=== PATIENT | male | born 1960 | race Caucasian/White ===

== ENCOUNTER 2016-08-13 13:12 | Emergency (ER) | payer OTHER ==
[~2016-08-13] VITALS: Ht 177.8 cm; Wt 172.7 kg
[~2016-08-13 13:12] MED LIST: AMITRIPTYLINE H10 MG PO; ASPIR 8181 M1 PO; DICLOFENAC SODI75 MG PO; GABAPENTIN300 MG PO; HUMALOG MI100 UNIT/1 SC; MOBIC15 MG PO; MOTRIN IB200 MG PO; PRILOSEC40 MG PO; SIMVASTATIN40 MG PO; SIMVASTATIN5 MG PO; TRAMADOL HCL50 MG PO; TRIAZOLAM0.25 MG PO; ZOCOR40 MG PO; ZOCOR5 MG PO; ZOLOFT100 MG PO; ZOLOFT25 MG PO; ZYRTEC10 M2 PO; ZYRTEC5 MG PO
[2016-08-13] MEDS ORDERED: ULTRAM50 MG PO (15:21)
[2016-08-13] MEDS ORDERED: FLEXERIL10 MG PO (15:21)
[2016-08-13] MEDS ORDERED: UNABLE TO OBTAIN (15:41)
[2016-08-13 15:47] VITALS: BP 130/78
== END 2016-08-13 15:49 | disposition home or self-care (01) ==
LOC: EME 13:12
DX: S40.011A Contusion of right shoulder, initial encounter (principal); S10.93XA Contusion of unspecified part of neck, initial encounter; R07.81 Pleurodynia; W17.89XA Other fall from one level to another, initial encounter; E11.9 Type 2 diabetes mellitus without complications; E78.5 Hyperlipidemia, unspecified
CPT/HCPCS: 71020; 71100; 73030; 99281; 99284

== ENCOUNTER 2016-08-15 00:12 | Emergency (ER) | payer OTHER ==
[~2016-08-15] VITALS: Ht 177.8 cm; Wt 159.0 kg
[~2016-08-15 00:12] MED LIST changes: +FLEXERIL10 MG PO; +ULTRAM50 MG PO; +UNABLE TO OBTAIN
[2016-08-15] MEDS ORDERED: PERCOCET 5/31 TABLET PO (03:22)
[2016-08-15] MEDS ORDERED: LIDODERM 5% P1 PATCH TD (03:22)
[2016-08-15 03:46] VITALS: BP 132/84
== END 2016-08-15 03:47 | disposition home or self-care (01) ==
LOC: EME 00:12
DX: S32.010A Wedge compression fracture of first lumbar vertebra, initial encounter for closed fracture (principal); S39.012A Strain of muscle, fascia and tendon of lower back, initial encounter; W19.XXXA Unspecified fall, initial encounter; E78.5 Hyperlipidemia, unspecified; E11.9 Type 2 diabetes mellitus without complications; Z79.4 Long term (current) use of insulin
CPT/HCPCS: 72131; 99281; 99283; J1170

== ENCOUNTER 2016-10-15 17:56 | Emergency (ER) | payer OTHER ==
[~2016-10-15] VITALS: Ht 177.8 cm; Wt 169.2 kg
[~2016-10-15 17:56] MED LIST changes: +LIDODERM 5% P1 PATCH TD; +PERCOCET 5/31 TABLET PO
[2016-10-15 18:32] LABS: HEMATOCRIT 44.4 % (38.0-50.0); MCHC 32.9 G/DL (30.0-36.0); MCV 85.1 FL (86-99); MEAN PLAT.VOLUME 8.8 uM^3 (9.0-12.4); PLATELET COUNT 222 K/uL (156-360); RBC DIS.WIDTH-CV 13.9 % (11.8-14.6); RBC DIS.WIDTH-SD 43.6 % (39-53); RED BLOOD COUNT 5.22 M/uL (4.00-5.50); WHITE BLOOD COUNT 9.7 K/uL (4.1-10.2)
[2016-10-15 18:46] LABS: CHLORIDE 103 mEq/L (99-109); POTASSIUM 4.4 mEq/L (3.7-5.4); SODIUM 139 mEq/L (136-147)
[2016-10-15 18:48] LABS: GLUCOSE 206 mg/dL (70-99)
[2016-10-15 18:49] LABS: ANION GAP 10 MEQ/L (2-14)
[2016-10-15 18:50] LABS: TOTAL BILIRUBIN 0.4 mg/dL (0.0-1.0)
[2016-10-15 18:51] LABS: ADD MIUA? YES; BILIRUBIN NEGATIVE; BLOOD SMALL; COLOR YELLOW ((YELLOW)); GLUCOSE (STRIP) 50; KETONES 5; LEUKOCYTES NEGATIVE; NITRITE NEGATIVE; PROTEIN (STRIP) 30; SPECIFIC GRAVITY 1.026 (1.000-1.030); UROBILINOGEN 0.2 MG/DL (0.2-1.0)
[2016-10-15 18:52] LABS: ALKALINE PHOSPHATASE 113 IU/L (3-129); GFR ESTIMATE (CALCULATED) > 59 mL/min/
[2016-10-15 18:53] LABS: UREA NITROGEN (BUN) 14 mg/dL (9-23)
[2016-10-15 19:08] LABS: BACTERIA NONE SEEN /HPF; EPITHELIAL CELLS RARE /HPF; MUCUS TRACE /LPF; RED BLOOD CELLS 0-5 /HPF (0-5); UCUL ADDED? NO; WHITE BLOOD CELLS 0-5 /HPF (0-5)
[2016-10-15 19:56] LABS: LIPASE 16 U/L (1.0-51.0)
[2016-10-15] MEDS ORDERED: PERCOCET 5/31 TABLET PO (21:20)
[2016-10-15 22:10] VITALS: BP 130/83
== END 2016-10-15 22:19 | disposition home or self-care (01) ==
LOC: RME 17:56 → EME 17:56 → RME 22:19
DX: K80.20 Calculus of gallbladder without cholecystitis without obstruction (principal); R19.7 Diarrhea, unspecified; K21.9 Gastro-esophageal reflux disease without esophagitis; J45.909 Unspecified asthma, uncomplicated; E78.5 Hyperlipidemia, unspecified; E11.9 Type 2 diabetes mellitus without complications; Z79.4 Long term (current) use of insulin
CPT/HCPCS: 74176; 80053; 81003; 83690; 85027; 93005; 99281; 99284

== ENCOUNTER 2016-11-01 11:31 | Day surgery (SDC) | payer OTHER ==
[~2016-11-01] VITALS: Ht 177.8 cm; Wt 169.0 kg
[~2016-11-01 11:31] MED LIST changes: +AMBIEN10 MG PO; +ELAVIL25 MG PO; +GLUCOPHAGE1000 MG PO; +HUMALOG100 UNIT/1 SC; +NEURONTIN600 MG PO; +SOLIQUA 100 UNIT3 ML SC; +ZANAFLEX2 MG PO; +ZANTAC300 MG PO
[2016-11-01 12:25] LABS: POINT-OF-CARE METER ID UU13113694
[2016-11-01 12:28] VITALS: BP 147/83
[2016-11-01] MEDS ORDERED: NORCO 5/3251 TABLET PO (16:25)
[2016-11-01] MEDS ORDERED: MOTRIN600 MG PO (16:25)
[2016-11-01 16:55] LABS: POINT-OF-CARE METER ID UU13113675
[2016-11-01 18:51] VITALS: BP 143/78
[2016-11-01 19:19] VITALS: BP 146/76
== END 2016-11-01 19:34 | disposition home or self-care (01) ==
LOC: SDC 11:31
PROVIDERS: Surgery
PROC: BF141ZZ Fluoroscopy of Gallbladder, Bile Ducts and Pancreatic Ducts using Low Osmolar Contrast (ICD-10-PCS; principal; 2016-11-01)
PROC: 0FT44ZZ Resection of Gallbladder, Percutaneous Endoscopic Approach (ICD-10-PCS; principal; 2016-11-01)
DX: K21.9 Gastro-esophageal reflux disease without esophagitis (principal); I10 Essential (primary) hypertension; E11.9 Type 2 diabetes mellitus without complications; F41.9 Anxiety disorder, unspecified; F32.9 Major depressive disorder, single episode, unspecified; E78.5 Hyperlipidemia, unspecified; J44.9 Chronic obstructive pulmonary disease, unspecified; Z72.0 Tobacco use; E66.01 Morbid (severe) obesity due to excess calories; Z68.42 Body mass index [BMI] 45.0-49.9, adult; M19.90 Unspecified osteoarthritis, unspecified site; Z82.49 Family history of ischemic heart disease and other diseases of the circulatory system; Z80.52 Family history of malignant neoplasm of bladder
CPT/HCPCS: 74300; 82948; 88304; C1769; J0131; J1170; J1885; J2250; J2405; J2710; J2765; J3010; S0020

== ENCOUNTER → 2016-12-13 | Outpatient (CLI) | payer OTHER ==
[~2016-12-13] VITALS: Ht 172.7 cm; Wt 170.1 kg
[~2016-12-13] MED LIST changes: +ADVIL,NUPRIN,M200 MG PO; +BENTYL20 MG PO; +MOTRIN600 MG PO; +NORCO 5/3251 TABLET PO; +OMEPRAZOLE40 M1 PO; -PRILOSEC40 MG PO
[2016-12-13 15:43] LABS: POINT-OF-CARE METER ID UU14107333
[2016-12-13 16:43] LABS: POINT-OF-CARE METER ID UU13113819
== END | disposition home or self-care (01) ==
LOC: AMB 11-29 14:00
PROVIDERS: Specialist
PROC: 0DBM8ZX Excision of Descending Colon, Via Natural or Artificial Opening Endoscopic, Diagnostic (ICD-10-PCS; principal; 2016-12-13)
PROC: 0DBB8ZX Excision of Ileum, Via Natural or Artificial Opening Endoscopic, Diagnostic (ICD-10-PCS; principal; 2016-12-13)
PROC: 0DBN8ZX Excision of Sigmoid Colon, Via Natural or Artificial Opening Endoscopic, Diagnostic (ICD-10-PCS; principal; 2016-12-13)
PROC: 0DB68ZX Excision of Stomach, Via Natural or Artificial Opening Endoscopic, Diagnostic (ICD-10-PCS; principal; 2016-12-13)
PROC: 0DBP8ZX Excision of Rectum, Via Natural or Artificial Opening Endoscopic, Diagnostic (ICD-10-PCS; principal; 2016-12-13)
PROC: 0DBH8ZX Excision of Cecum, Via Natural or Artificial Opening Endoscopic, Diagnostic (ICD-10-PCS; principal; 2016-12-13)
PROC: 0DB58ZX Excision of Esophagus, Via Natural or Artificial Opening Endoscopic, Diagnostic (ICD-10-PCS; principal; 2016-12-13)
PROC: 0DBK8ZX Excision of Ascending Colon, Via Natural or Artificial Opening Endoscopic, Diagnostic (ICD-10-PCS; principal; 2016-12-13)
DX: K29.70 Gastritis, unspecified, without bleeding (principal); K30 Functional dyspepsia; R19.7 Diarrhea, unspecified; K57.30 Diverticulosis of large intestine without perforation or abscess without bleeding; D12.2 Benign neoplasm of ascending colon; K63.5 Polyp of colon; K62.1 Rectal polyp; K64.8 Other hemorrhoids; E11.9 Type 2 diabetes mellitus without complications; E78.5 Hyperlipidemia, unspecified; G47.33 Obstructive sleep apnea (adult) (pediatric); E66.9 Obesity, unspecified; Z68.43 Body mass index [BMI] 50.0-59.9, adult; Z79.84 Long term (current) use of oral hypoglycemic drugs; Z91.09 Other allergy status, other than to drugs and biological substances; F17.220 Nicotine dependence, chewing tobacco, uncomplicated
CPT/HCPCS: 82948; 88305; 88342 TC; J2250; J3010